=== PATIENT | male | born 1970 | race Caucasian/White ===

== ENCOUNTER 2021-09-20 20:25 | Emergency (ER) | payer OTHER ==
[~2021-09-20] VITALS: Ht 177.8 cm; Wt 81.6 kg
[~2021-09-20 20:25] MED LIST: CARI250T PO; HYDR-4354 PO
--- NOTE | 2021-09-20 23:21 | NUR ---
Patient discharged to shelter in stable condition. Written and verbal after care instructions given. Patient verbalizes understanding of instruction.
[2021-09-20 23:22] VITALS: BP 145/70
== END 2021-09-20 23:22 ==
LOC: ER 20:51
DX: J06.9 Acute upper respiratory infection, unspecified (principal); Z20.822 Contact with and (suspected) exposure to COVID-19; S60.221A Contusion of right hand, initial encounter; W23.0XXA Caught, crushed, jammed, or pinched between moving objects, initial encounter; Y92.89 Other specified places as the place of occurrence of the external cause; Z98.1 Arthrodesis status; Z79.899 Other long term (current) drug therapy
CPT/HCPCS: 73130; 87426; 99284; C9803